=== PATIENT | male | born 1935 | race Caucasian/White ===

== ENCOUNTER 2020-04-30 20:47 | Emergency (ER) | payer OTHER ==
[~2020-04-30] VITALS: Ht 180.3 cm; Wt 77.1 kg
[2020-04-30 21:16] VITALS: BP 143/83; Ht 180.3 cm; Wt 77.1 kg
== END 2020-04-30 21:41 | disposition other institution (70) ==
LOC: ED 20:47
DX: Z02.89 Encounter for other administrative examinations (principal)